=== PATIENT | male | born 1970 | race American Indian/Alaskan Native ===

== ENCOUNTER 2016-12-21 23:57 | Emergency (ER) | payer OTHER ==
[2016-12-22 01:01] LABS: Eosinophils % (Auto) 5.2 % (0.0-4.3); Hematocrit 45.8 % (35.5-45.6); Hemoglobin 15.3 gm/dl (11.8-15.2); Mean Corpuscular HGB Conc 33 % (32-34); Mean Corpuscular Hemoglobin 31 pg (28-32); Mean Corpuscular Volume 94 fl (84-94); Platelet Count 157 K/mm3 (140-440); Red Blood Count 4.88 M/mm3 (3.65-5.03); Red Cell Distribution Width 13.3 % (13.2-15.2); White Blood Count 5.7 K/mm3 (4.5-11.0)
[2016-12-22 01:12] LABS: Anion Gap 22 mmol/L; BUN/Creatinine Ratio 17.14; Blood Urea Nitrogen 12 mg/dL (9-20); Calcium 9.2 mg/dL (8.4-10.2); Carbon Dioxide 21 mmol/L (22-30); Glucose 123 mg/dL (75-100); Potassium 4.2 mmol/L (3.6-5.0); Sodium 140 mmol/L (137-145)
[2016-12-22 05:02] VITALS: BP 154/110
--- NOTE | 2016-12-22 07:37 | XRay Report ---
ROUTINE CHEST, TWO VIEWS: HISTORY: Shortness of breath. The trachea, heart, mediastinal contour, lung purvis and bony thorax are unremarkable. IMPRESSION: Unremarkable chest x-ray. No change since 06/22/15.
== END 2016-12-22 05:30 | disposition left against medical advice (07) ==
LOC: ED 23:57
DX: R07.89 Other chest pain (principal); Z53.21 Procedure and treatment not carried out due to patient leaving prior to being seen by health care provider
CPT/HCPCS: 36415; 71020; 80048; 84484; 85025; 93005; 93010

== ENCOUNTER 2017-12-05 16:55 | Emergency (ER) | payer OTHER ==
[2017-12-05] MEDS ORDERED: ZOFRAN ODT PO ONE (17:55)
[2017-12-05] MEDS ORDERED: MORPHINE IM ONE (17:55)
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
[2017-12-05] MEDS ORDERED: APRESOLINE IV ONE (18:21)
[2017-12-05] MEDS ORDERED: MORPHINE ONE (18:22)
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
[2017-12-05] MEDS ORDERED: XYLOCAINE 1% 20 mL INFILTRATI ONE (19:08)
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
[2017-12-05] MEDS ORDERED: NACL 0.9% 500 ML IR ONE (19:41)
[2017-12-05] MEDS ORDERED: MORPHINE IV ONE (20:00)
[2017-12-05 20:24] VITALS: BP 141/99
== END 2017-12-05 19:20 | disposition home or self-care (01) ==
LOC: ED 16:55
DX: S93.115A Dislocation of interphalangeal joint of left lesser toe(s), initial encounter (principal); S90.512A Abrasion, left ankle, initial encounter; R51 Headache; I10 Essential (primary) hypertension; F17.200 Nicotine dependence, unspecified, uncomplicated; V29.9XXA Motorcycle rider (driver) (passenger) injured in unspecified traffic accident, initial encounter; Y93.89 Activity, other specified; Y92.89 Other specified places as the place of occurrence of the external cause; Y99.8 Other external cause status
CPT/HCPCS: 28660; 70450; 70486; 73610; 73660; 93005; 93010; 96372; 96374; 99285; J0360; J2270; Q0162

== ENCOUNTER 2019-01-04 07:38 | Emergency (ER) | payer SELFPAY ==
[2019-01-04] MEDS ORDERED: ASPIRIN PO ONE (07:46)
[2019-01-04 08:05] LABS: Basophils # (Auto) 0.1 K/mm3 (0.0-0.1); Basophils % (Auto) 0.9 % (0.0-1.8); Eosinophils # (Auto) 0.2 K/mm3 (0.0-0.4); Eosinophils % (Auto) 3.3 % (0.0-4.3); Hematocrit 48.1 % (35.5-45.6); Hemoglobin 16.1 gm/dl (11.8-15.2); Lymphocytes # (Auto) 2.2 K/mm3 (1.2-5.4); Lymphocytes % (Auto) 37.1 % (13.4-35.0); Mean Corpuscular HGB Conc 34 % (32-34); Mean Corpuscular Volume 95 fl (84-94); Monocytes # (Auto) 0.5 K/mm3 (0.0-0.8); Monocytes % (Auto) 8.8 % (0.0-7.3); Platelet Count 189 K/mm3 (140-440); Red Blood Count 5.05 M/mm3 (3.65-5.03); Red Cell Distribution Width 13.7 % (13.2-15.2)
[2019-01-04 08:14] LABS: INR 1.02 (0.87-1.13)
[2019-01-04 08:15] LABS: Partial Thromboplastin Time 28.5 Sec. (24.2-36.6)
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
[2019-01-04 08:28] LABS: Alanine Aminotransferase 27 units/L (7-56); Albumin 4.7 g/dL (3.9-5); BUN/Creatinine Ratio 11; Blood Urea Nitrogen 9 mg/dL (9-20); Calcium 9.9 mg/dL (8.4-10.2); Hemolysis Index 14
[2019-01-04] MEDS ORDERED: MORPHINE IV ONE ×2 (09:16→11:45)
[2019-01-04] MEDS ORDERED: ZOFRAN IV ONE (09:16)
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
--- NOTE | 2019-01-04 11:17 | Cat Scan Report ---
CTA CHEST WITH IV CONTRAST INDICATION: Chest pain radiating into back and abdomen. Elevated blood pressure. TECHNIQUE: Axial CT images were obtained through the chest after injection of 100 mL Omnipaque 350 IV contrast. 3 plane MIP reconstructions were produced. All CT scans at this location are performed using CT dose reduction for ALARA by means of automated exposure control. COMPARISON: 2 views of the chest from earlier today. FINDINGS: PULMONARY ARTERIES: There is good opacification of the pulmonary arteries without distinct suspicious filling defects concerning for thromboemboli. AORTA AND ARTERIES: No acute abnormality. MEDIASTINUM: No mass, lymphadenopathy or other significant abnormality. The heart is normal in size w ithout a pericardial effusion. The trachea and main bronchi are patent and normal in caliber. LUNGS: Mild atelectasis is noted along the lower lobes. The lungs are otherwise clear without a pneum othorax or pleural effusion. ADDITIONAL FINDINGS: None. UPPER ABDOMEN: No acute findings. BONES: No significant osseous abnormality. IMPRESSION: No CT evidence of PTE or other acute abnormalities of the chest. Signer Name: Darci Henry MD Signed: 01/04/2019 11:13 AM Workstation Name: [id number]
--- NOTE | 2019-01-04 11:21 | Cat Scan Report ---
CTA ABDOMEN AND PELVIS WITH IV CONTRAST INDICATION: Chest pain radiating into back and abdomen with elevated blood pressure. TECHNIQUE: Axial CT images were obtained through the abdomen and pelvis before and after after injection of 100 mL Omnipaque 350 IV contrast. 3 plane MIP reconstructions were produced. All CT scans at this [facility] are performed using CT dose reduction for ALARA by means of automated exposure control. COMPARISON: None available. FINDINGS: VASCULAR FINDINGS: AORTA: No significant abnormality. CELIAC TRUNK: No significant abnormality. SUPERIOR MESENTERIC ARTERY: No significant abnormality. RENAL ARTERIES: No significant abnormality. INFERIOR MESENTERIC ARTERY: No significant abnormality. RIGHT ILIAC ARTERIES: No significant abnormality.. LEFT ILIAC ARTERIES: No significant abnormality.. FEMORAL ARTERIES: No significant abnormality. NONTARGET STRUCTURES: ABDOMEN: No significant abnormality. PELVIS: No significant abnormality. SKELETAL: No acute abnormality. There are degenerative changes throughout the spine. There is an old fracture of the right inferior pubic ramus. ADDITIONAL FINDINGS: None. IMPRESSION: No acute abnormality of the abdomen or pelvis. Signer Name: Darci Henry MD Signed: 01/04/2019 11:16 AM Workstation Name: [id number]
[2019-01-04 12:52] VITALS: BP 132/69
== END 2019-01-04 12:51 | disposition home or self-care (01) ==
LOC: ED 07:38
DX: R07.89 Other chest pain (principal); I10 Essential (primary) hypertension; Z79.899 Other long term (current) drug therapy; Z88.8 Allergy status to other drugs, medicaments and biological substances
CPT/HCPCS: 36415; 71046; 71275; 74174; 80053; 83690; 84484; 85025; 85610; 85730; 93005; 93010; 96374; 96375; 96376; 99285; J2270; J2405; Q9967